=== PATIENT | female | born 1970 | race Caucasian/White ===

== ENCOUNTER 2020-05-24 17:57 | Emergency (ER) | payer OTHER, BC, SELFPAY ==
--- NOTE | ~2020-05-24 | XR_ITS ---
EXAMINATION: XR wrist LT min 3V DATE: 05/24/2020 18:43 INDICATION: Left wrist pain TECHNIQUE: Posteroanterior, ulnar deviation, oblique, and lateral views of the left wrist were obtain ed. COMPARISON: None available FINDINGS: . There is no fracture, dislocation, or subluxation. The bones and joint spaces are normal. There is soft tissue swelling surrounding the distal radius and ulna. IMPRESSION: 1. No acute osseous abnormality. Reviewed, dictated and finalized at location A. D RECORDER
--- NOTE | ~2020-05-24 | XR_ITS ---
EXAMINATION: XR forearm LT 2V INDICATION: Left forearm pain TECHNIQUE: Two views of the left forearm are obtained. COMPARISON: None available FINDINGS: There is no fracture, dislocation, or subluxation. The bones and joint spaces are normal. T here is soft tissue swelling surrounding the distal radius and ulna. IMPRESSION: 1. No acute osseous abnormality. Reviewed, dictated and finalized at location A. [facility] [employer] [facility]
[2020-05-24 18:03] VITALS: BP 146/86; PULSE 97; RESP 16; TEMP 36.9; O2SAT 98
--- NOTE | 2020-05-24 19:32 | ED.GENADULT ---
HPI - General Adult General Chief complaint: Extremity Injury, Upper Stated complaint: left wrist pain Time Seen by Provider: 05/24/20 18:20 Source: patient Mode of arrival: ambulatory Limitations: no limitations History of Present Illness HPI narrative: Patient presents with chief complaint of pain to left wrist that shoots up to her forearm that began after falling yesterday on outstretched hand. Patient reports she noticed tingling in the left hand when sleeping. She also notes pain with some range of motion. She denies any other areas of injury. She denies prior fracture to this area. Related Data Home Medications Medication Instructions Recorded Confirmed cholecalciferol (vitamin D3) 25 25 mcg PO DAILY 05/07/20 05/07/20 mcg (1,000 unit) capsule vitamin B complex 1 tablet PO DAILY 05/07/20 05/07/20 Allergies Allergy/AdvReac Type Severity Reaction Status Date / Time No Known Allergies Allergy Verified 05/24/20 18:16 Review of Systems Review of Systems: Narrative: CONSTITUTIONAL: Denies fever, chills, or sweats. EYES: Denies visual changes, redness, or discharge. ENT: Denies rhinorrhea, congestion, sore throat, or otalgia. CARDIOVASCULAR: Denies chest pain, palpitations, or edema. RESPIRATORY: Denies cough or dyspnea. GASTROINTESTINAL: Denies abdominal pain, nausea, vomiting, or diarrhea. GENITOURINARY: Denies dysuria or hematuria. SKIN: Denies rash or itching. MUSCULOSKELETAL: Reports left wrist pain denies back pain or myalgia. NEUROLOGIC: Denies headache, numbness, dizziness, or weakness. PSYCHIATRIC: Denies anxiety or depression. [facility] Past Medical History Medical History Class 3 severe obesity due to excess calories with serious comorbidity and body mass index (BMI) greater than or equal to 70 in adult Tarsal tunnel syndrome of left side Family History Family History Father Family history of pancreatic cancer Family history of lymphoma Other Family history of malignant neoplasm of breast Social History Social History Smoking status: Never smoker Alcohol intake: never Gender identity (if verbalized by the patient): Female Exam Narrative: Exam Narrative: GENERAL: Well-appearing, well-nourished, and in no acute distress. HEAD: Normocephalic, atraumatic. EYES: PERRLA and EOMI. CHEST: Clear to auscultation. No respiratory distress. No wheezes rales or rhonchi HEART: Regular rate and rhythm. EXTREMITIES: Pain to left wrist with supination. Pulses intact. Abrasion to the volar aspect of left palm. No signs of infection. [employer] strength intact but causes some pain. SKIN: Abrasion to volar aspect of left palm. Warm, dry, no rash. NEURO: No focal deficits. Alert and oriented x3. PSYCH: Normal mood and affect. Course Vital Signs Vital signs: Vital Signs Temperature 98.5 F 05/24/20 18:03 Pulse Rate 97 05/24/20 18:03 Respiratory Rate 16 05/24/20 18:03 Blood Pressure 146/86 H 05/24/20 18:03 Pulse Oximetry 98 05/24/20 18:03 Temperature 98.5 F 05/24/20 18:03 Pulse Rate 97 05/24/20 18:03 Respiratory Rate 16 05/24/20 18:03 Blood Pressure 146/86 H 05/24/20 18:03 Pulse Oximetry 98 05/24/20 18:03 Medical Decision Making MDM Narrative Medical decision making narrative: Patient has no fracture. Discussed with patient RICE instructions for left wrist sprain. Patient will be given Gordy wrap. Patient instructed to follow-up with primary care within 1 week for reevaluation. Patient instructed if symptoms persist that she may need physical therapy or further imaging to evaluate tendon and ligament injury. Patient verbalized understanding agreement plan denies any other questions or concerns. Differential Diagnosis Differential Diagnosis: Fracture, sprain, strain Vital Signs Vital Signs: Vital Signs
== END 2020-05-24 19:51 | disposition home or self-care (01) ==
PROVIDERS: Emergency Provider Emergency Medicine; PCP Family Medicine
DX: S63.502A Unspecified sprain of left wrist, initial encounter (principal); E66.01 Morbid (severe) obesity due to excess calories; Z68.42 Body mass index [BMI] 45.0-49.9, adult; W19.XXXA Unspecified fall, initial encounter
CPT/HCPCS: 73090; 73110; 99283

== ENCOUNTER 2020-09-15 17:45 | Emergency (ER) | payer BC, SELFPAY ==
[2020-09-15] VITALS (9 sets, daily range): BP systolic 118–127; BP diastolic 68–90; PULSE 84–110; RESP 14–20; TEMP 36.6–36.9; O2SAT 98–100
--- NOTE | ~2020-09-15 | CT_ITS ---
EXAMINATION: CTA chest PE abdomen pel EXAM DATE: 09/15/2020 20:52 INDICATION: Postoperative sob, elevated d dimer. Gastric sleeve 08/28/2020. Nausea vomiting and diarrh ea. TECHNIQUE: Spiral CTA of the chest (pulmonary arteries) was performed with 100 cc Omnipaque 350 intr avenous contrast injection. Images were acquired during the pulmonary arterial phase. Coronal maxi mum intensity projection 3D-reconstructions were created by the technologist on dedicated workstation . Axial, coronal and sagittal reformatted images were reviewed. Spiral CT of the abdomen and pelvis was then performed with the same intravenous contrast injection. Axial, coronal and sagittal reform atted images were reviewed. The dose-length product (DLP) for this examination was 2041.12 mGy-cm. The exposure was tailored according to patient size (auto mA exposure control), and iterative recons truction (ASIR) was used as additional dose reduction technique. There is no prior study for compari son. FINDINGS: CHEST: Pulmonary arteries are well opacified and without intraluminal filling defects. No thoracic aortic dissection. The lungs are clear. There are no pleural or pericardial effusions. Tracheob ronchial tree is patent. There is no mediastinal, hilar or axillary lymphadenopathy. There is no pneumothorax. Heart normal in size. No evidence of coronary arterial calcification. ABDOMEN PELVIS: There is hepatic steatosis without suspicious focal lesion identified. Spleen, adrena l glands, pancreas are unremarkable. Gallbladder is unremarkable. No biliary obstruction. Portal a nd splenic veins are patent. Kidneys enhance symmetrically. There is no hydronephrosis. The uteru s is unremarkable. The bladder is unremarkable. There is no retroperitoneal or pelvic lymphadenopa thy. There are no findings to suggest appendicitis. There is mild scattered colonic diverticulosis. There is no adjacent inflammatory change to suggest diverticulitis. Surgical changes consistent with rece nt gastric sleeve surgery. There is expected amount of colonic stool. No free intraperitoneal gas. The bones are unremarkable. IMPRESSION: 1. No pulmonary emboli or acute thoracic or abdominal findings. 2. Surgical changes from gastric sleeve. 3. Mild colonic diverticulosis. 4. Hepatic steatosis. Reviewed, dictated and finalized at location A.
--- NOTE | 2020-09-15 17:59 | ECG_ITS ---
Measurements Intervals [place] Rate: 105 P: 64 [place]: 161 QRS: 73 QRSD: 83 T: 14 QT: 324 QTc: 429 Interpretive Statements SINUS TACHYCARDIA POSSIBLE RIGHT ATRIAL ENLARGEMENT MINIMAL Q WAVES- INFERIOR LEADS ST-T WAVE ABNORMALITY IN INFERIOR LEADS- CONSIDER ISCHEMIA BASELINE ARTIFACT- II, III ABNORMAL ECG Electronically Signed On 09-15-2020 20:36:24 CDT by Juan Carlos Jerez D.O.
[2020-09-15 18:21] LABS: Basophils Absolute Auto 0.1 K/mm3 (0.0-0.1); Basophils Percent Auto 0.6 % (0.2-1.2); Eosinophils Absolute Auto 0.1 K/mm3 (0-0.3); Eosinophils Percent Auto 0.8 % (0-4.4); Hematocrit 50.1 % (37.0-47.0); Hemoglobin 16.5 g/dL (12.0-15.0); Immature Granulocyte Absolute 0.03 K/mm3 (0.00-0.031); Immature Granulocyte Percent A 0.3 % (0-0.5); Lymphocytes Absolute Auto 2.07 K/mm3 (0.9-3.2); Lymphocytes Percent Auto 23.1 % (18.3-44.2); Mean Corpuscular HGB Conc 32.9 g/dl (32-36); Mean Corpuscular Hemoglobin 28.8 pg (26-34); Mean Corpuscular Volume 87.6 fl (80-100); Mean Platelet Volume 10.1 fl (7.4-10.4); Monocytes Absolute Auto 0.7 K/mm3 (0.1-0.6); Monocytes Percent Auto 7.5 % (2.6-8.5); Neutrophils Absolute Auto 6.1 K/mm3 (1.3-6.7); Neutrophils Percent Auto 67.7 % (45.5-73.1); Platelet Count Result 341 k/mm3 (150-375); Red Blood Count 5.72 M/mm3 (4.2-5.4); Red Cell Distribution Width 13.2 % (11.5-14.5)
[2020-09-15 18:29] LABS: Alanine Aminotransferase 33 U/L (4-35); Albumin Level 4.7 g/dL (3.5-5.1); Alkaline Phosphatase 76 U/L (38-126); Anion Gap 20 mmol/L (8-16); Aspartate Amino Transferase 44 U/L (14-36); Bilirubin,Total 0.6 mg/dL (0.2-1.3); Blood Urea Nitrogen 10 mg/dL (7-17); Calcium 10.2 mg/dL (8.4-10.2); Carbon Dioxide 17 mmol/L (22-30); Chloride 106 mmol/L (98-107); Estimated CRCL calculation 79 ml/min; Estimated Glomerular Filt Rate > 60; Glucose 98 mg/dL (65-105); Lipase 195 U/L (23-300); Potassium 3.7 mmol/L (3.4-5.0); Sodium 143 mmol/L (137-145)
[2020-09-15 19:08] LABS: Add Urine Microscopic? YES; Appearance Urine Cloudy (Clear); Bacteria Urine Trace /hpf; Bilirubin Urine Negative (Negative); Blood Urine 1+ (Negative); Color Urine Yellow (Yellow); Glucose Urine UA Negative (Negative); Ketones Urine 2+ mg/dL (Negative); Leukocyte Esterase Ur 1+ LEU/UL (Negative); Mucus Urine Moderate /lpf; Nitrate Urine Negative (Negative); Protein Urine 3+ mg/dL (Negative); Squamous Epithelial Cell Urine Many /hpf (Few)
[2020-09-15] MEDS: LACTATED RINGERS 1,000 ML 999 ML IV CONT ×3 (19:42→21:33)
[2020-09-15] MEDS: ONDANSETRON INJ 4 MG/2 ML VIAL IV PUSH (19:43)
--- NOTE | 2020-09-15 19:48 | PC.NURSE ---
Agree with triage notes. Pt continues to complain of weakness and nausea. Pt denies emesis, chest pain and sob at this time. Pt resting on cart in its lowest position with stable vitals and in no obvious distress at this time. Pt advised to press call button for assistance and voices her understanding.
[2020-09-15 19:50] LABS: Lactic Acid Reflex 1.3 mmol/L (0.7-2.1)
[2020-09-15 19:54] LABS: Alveolar/Arterial O2 Gradient 20.4 mmHg; Carboxyhemoglobin 0.4 % THb (0-2.0); Fractional Inspired Oxygen 21 %; HCO3 ABG 16.4 mEq/l (22.0-26.0); Methemoglobin ABG 0.5 %THb (0-1.5); Oxygen Content ABG 20.9 %vol (16.0-22.0); Oxygen Saturation ABG 97.7 % (95.0-100.0); Oxyhemoglobin 96.6 % THb (90.0-100.0); PCO2 ABG 25.7 mmHg (35.0-45.0); PO2 ABG 98.6 mmHg (80.0-100.0); Reduced Hemoglobin 2.5 %THb (0-5.0); Total Hemoglobin 15.3 g/dL (12.0-18.0); pH ABG 7.424 (7.350-7.450)
[2020-09-15 19:58] LABS: D Dimer 0.88 ug/mL (<0.48)
--- NOTE | 2020-09-15 20:00 | ED.NAVMDI ---
HPI - Nausea/Vomiting/Diarrhea General Chief complaint: Nausea/Vomiting/Diarrhea Stated complaint: gastric sleeve August 28, vomitting/ fast heart Time Seen by Provider: 09/15/20 18:49 Source: patient, RN notes reviewed and old records reviewed Mode of arrival: ambulatory Limitations: no limitations History of Present Illness HPI Narrative: This is a 49 year old female who presents for evaluation of nausea and diarrhea for 2 weeks. She had a gastric sleeve performed 08/28/20 in [place]. She states she was able to eat and drink 1 week after procedure. She developed diarrhea 1-2 weeks ago. She reports mucous- nonbloody diarrhea with approximately 7-15 episode daily. She states she was told by her surgeon her diarrhea is likely due to barium swallow that was performed postoperatively. She called her primary care provider, Dr. Kendra Ba about her symptoms, and patient states she was started on antibiotics for possible C Diff. She states she took antibiotics 1 week postoperatively previous to developing diarrhea. She has been taking the antibiotics for 5 days. She reports dry heaves and nausea. She is able to drink water and eat without vomiting but she does have nausea. She reports intermittent lower abdominal cramping prior to her episodes of diarrhea. She is concerned that she may be dehydrated. She denies sick contacts. Patient also reports shortness of breath but denies cough or chest pain. Related Data Home Medications Medication Instructions Recorded Confirmed cholecalciferol (vitamin D3) 25 25 mcg PO DAILY 05/07/20 07/10/20 mcg (1,000 unit) capsule vitamin B complex 1 tablet PO DAILY 05/07/20 07/10/20 biotin 1 mg capsule 1 mg PO DAILY 07/10/20 07/10/20 Allergies Allergy/AdvReac Type Severity Reaction Status Date / Time metformin AdvReac severe Verified 09/15/20 18:48 headaches, tachycardia Review of Systems Review of Systems: All systems reviewed & are unremarkable except as noted in HPI and below PMFSH Past Medical History Medical History (Updated 09/16/20 @ 00:00 by Cristi King) Class 3 severe obesity due to excess calories with serious comorbidity and body mass index (BMI) greater than or equal to 70 in adult Tarsal tunnel syndrome of left side Surgical History Surgical History (Updated 09/15/20 @ 20:07 by Sarah Brady MD) History of sleeve gastrectomy Family History Family History Father Family history of pancreatic cancer Family history of lymphoma Other Family history of malignant neoplasm of breast Social History Social History Alcohol intake: never Gender identity (if verbalized by the patient): Female Exam Const: General: no acute distress and alert Nutritional Appearance: obese Orientation/consciousness: patient oriented x3 Eyes: EOM: EOMs intact bilaterally Resp: Effort & Inspection: normal respiratory effort and no retractions Auscultation: clear to auscultation bilaterally Cardio: Rate: regular rate Rhythm: regular rhythm Heart sounds: no murmurs GI: GI Palp: Yes Soft to palpation, No Tenderness to palpation present (GI) and No Guarding due to palpation present (GI) Auscultation: normal bowel sounds Skin: General skin exam: normal color Rashes: no rashes Neuro: General: patient oriented x3, moves all extremities and CN's II-XI intact bilaterally Psych: Mental Status: mental status grossly normal Affect: normal affect Course Reevaluation(s) Reevaluation #1: I Discussed with patient that CT was unremarkable. She has not had any vomiting or diarrhea while in ER. I have discussed plan to discharge after 3 liter of fluid and she will follow up with PCP. Date: 09/15/20 Time: 21:57 Vital Signs Vital signs: Vital Signs Temperature 97.9 F 09/15/20 17:56 Pulse Rate 110 H 09/15/20 17:56 Respiratory
[2020-09-15 20:01] LABS: Modified Allen's Test Pass; Site Drawn LEFT RADIAL
[2020-09-15 20:02] LABS: Device ROOM AIR
--- NOTE | 2020-09-15 20:55 | PC.NURSE ---
PT TO AND FROM RADIOLOGY AND IS NOW BACK IN ROOM RESTING ON CART IN ITS LOWEST POSITION. pT VOICES THAT SHE FEELS COLD AND WARM BLANKET PROVIDED FOR COMFORT. PT STATES THAT SHE CONTINUES TO FEEL NAUSEOUS AND WEAK AFTER MEDICATION ADMINISTRATION. pT REMAINS ALERT AND ORIENTED X4 AND IN NO OBVIOUS DISTRESS. vITALS ARE STABLE. cALL BUTTON AND PERSONAL ITEMS WITHIN REACH AND PT ADVISED TO PRESS CALL BUTTON FOR ASSISTANCE.
--- NOTE | 2020-09-15 21:37 | PC.NURSE ---
Pt resting on cart in its lowest position with call button and personal items within reach. Pt aware of poc and all questions and concern addressed. Pt has no complaints at this time. Vitals are stable and pt in no obvious distress.
--- NOTE | 2020-09-15 22:08 | PC.NURSE ---
EDMD presented to bedside to update pt on poc and all questions and concerns addressed.
== END 2020-09-15 22:31 | disposition home or self-care (01) ==
PROVIDERS: Emergency Medicine; Emergency Provider General Practice; PCP Family Medicine
DX: E86.0 Dehydration (principal); R19.7 Diarrhea, unspecified; I10 Essential (primary) hypertension; E66.01 Morbid (severe) obesity due to excess calories; Z68.45 Body mass index [BMI] 70 or greater, adult; Z98.84 Bariatric surgery status
CPT/HCPCS: 36415; 36600; 71275; 74177; 80053; 81001; 82375; 82805; 83050; 83605; 83690; 85025; 85380; 87086; 87088; 93005; 96361; 96374; 99284; J2405; J7120; Q9967

== ENCOUNTER 2020-09-18 15:41 | Outpatient (NON) | payer BC, SELFPAY | END 2020-09-18 15:42 | disposition home or self-care (01) | LOC: ANHLAB 15:42 | PROVIDERS: PCP Family Medicine; Referring Provider General Practice; Visit Provider Family Medicine | DX: R19.7 Diarrhea, unspecified (principal); E86.0 Dehydration | CPT/HCPCS: 87045; 87046; 87324; 87427; 87493 ==

== ENCOUNTER 2022-12-07 11:57 | Outpatient (CLI) | payer OTHER, SELFPAY ==
--- NOTE | ~2022-12-07 | XR_ITS ---
EXAMINATION: XR shoulder LT min 2V INDICATION: Left shoulder pain TECHNIQUE: Four views of the left shoulder are submitted. COMPARISON: None FINDINGS: Normal alignment. No fracture. There is mild osteoarthritis of the acromioclavicular and gl enohumeral joints. Soft tissues are unremarkable. IMPRESSION: 1. Osteoarthritis without acute osseous abnormality. Reviewed, dictated and finalized at location L.
== END 2022-12-07 11:58 ==
PROVIDERS: PCP Family Medicine; Visit Provider Family Medicine
DX: M75.02 Adhesive capsulitis of left shoulder (principal); M19.012 Primary osteoarthritis, left shoulder
CPT/HCPCS: 73030